=== PATIENT | male | born 1960 | race Two or more races ===

== ENCOUNTER → 2019-07-04 | Day surgery (SDC) | payer BC ==
[~2019-07-04] MED LIST: FENTANYL CITRATE/PF 100MCG/2 ML INJ ONE; GLUCAGON FOR INJ 1 MG VIAL ONE; LIDOCAINE HCL 2% LOCAL INJ 5 ML SDV VIAL INJ ONE; MIDAZOLAM HCL 2 MG/2 ML VIAL ONE; PROPOFOL IV EMULSION 10 MG/ML 50 ML VIAL ONE
[2019-07-04 18:15] VITALS: BP 107/61
--- NOTE | 2019-07-05 01:59 | Operative Report ---
DATE OF PROCEDURE: 07/04/2019 SURGEON: Leonides Martinez MD PROCEDURE: Colonoscopy with polypectomy and hemoclipping. INDICATIONS FOR COLONOSCOPY: Colorectal cancer screening. MEDICATIONS: The patient was done under MAC. Please see anesthesiologist's note. PROCEDURE IN DETAIL: With the patient in left lateral decubitus position, flexible fiberoptic Olympus colonoscope was inserted into the rectum with ease and advanced all the way to the cecum. Prep overall was suboptimal with scattered stools pretty much throughout the colon predominantly in the right colon, but after extensive lavage visualization was fair. The scope was then withdrawn slowly and whatever was visualized in the mucosa overlying the cecum appeared to be within normal limits. One polyp approximately 5 mm in size was removed per cold snare polypectomy from the proximal ascending colon, site was hemoclipped x2. The rest of the ascending, transverse, descending, and sigmoid other than for diverticular disease, whatever was visualized in the mucosa appeared to be within normal limits. The rectum appeared to be within normal limits. The scope was then retroflexed into the distal rectum and small internal hemorrhoids were noted, none of which was actively bleeding. The scope was then straightened out, it was subsequently withdrawn. The patient tolerated the procedure well. IMPRESSION: 1. Suboptimal prep, visualization fair. 2. Diverticulosis. 3. Ascending colon polyp snared, site hemoclipped x2. 4. Internal hemorrhoids none actively bleeding. PLAN: Follow up histology. Initiate high-fiber, low-fat diet. Initiate high-fiber supplement. The patient might benefit from a followup colonoscopy in 5 years. Leonides Martinez MD [facility] [place] /[id number] cc: Donald De León MD
== END | disposition home or self-care (01) ==
LOC: OR 11:46
PROVIDERS: ATTEND Internal Medicine Gastroenterology
DX: Z12.11 Encounter for screening for malignant neoplasm of colon (principal); R03.0 Elevated blood-pressure reading, without diagnosis of hypertension; K57.30 Diverticulosis of large intestine without perforation or abscess without bleeding; K63.5 Polyp of colon; K64.8 Other hemorrhoids
CPT/HCPCS: 45380; J1610; J2001; J2250; J2704; J3010; 45378